=== PATIENT | female | born 1960 | race Two or more races ===

== ENCOUNTER 2018-12-15 14:00 | Outpatient (CLI) | payer OTHER ==
[~2018-12-15 14:00] MED LIST: ARMOUR THYROID30 M1; ESTAZOLAM1 MG; SYNTHROID50 MCG PO; WELLBUTRIN XL300 MG
== END 2018-12-15 14:28 | disposition home or self-care (01) ==
LOC: MAMO-SONO 14:00
DX: N60.01 Solitary cyst of right breast (principal); E04.1 Nontoxic single thyroid nodule; N83.291 Other ovarian cyst, right side; Z12.31 Encounter for screening mammogram for malignant neoplasm of breast

== ENCOUNTER 2018-12-29 13:54 | Outpatient (CLI) | payer OTHER | END 2018-12-29 14:02 | disposition home or self-care (01) | LOC: RAD 13:54 | DX: Z01.811 Encounter for preprocedural respiratory examination (principal) ==

== ENCOUNTER 2019-01-25 08:55 | Day surgery (SDC) | payer OTHER ==
[~2019-01-25 08:55] MED LIST changes: +ESCITALOPRAM OX10 MG
== END 2019-01-25 17:40 | disposition home or self-care (01) ==
LOC: CIR.AMB 08:55
DX: N84.0 Polyp of corpus uteri (principal)

== ENCOUNTER 2019-10-15 08:16 | Emergency (ER) | payer OTHER ==
[~2019-10-15] VITALS: Ht 157.5 cm; Wt 77.1 kg
[2019-10-15] MEDS ORDERED: SYNTHROID75 MCG (08:44)
[2019-10-15] MEDS ORDERED: BACTRIM DS TAB1 EACH PO (09:10)
== END 2019-10-15 09:13 | disposition home or self-care (01) ==
LOC: ER 08:16
DX: N61.0 Mastitis without abscess (principal)

== ENCOUNTER 2019-10-25 11:55 | Outpatient (CLI) | payer OTHER ==
[~2019-10-25 11:55] MED LIST changes: +BACTRIM DS TAB1 EACH PO; +SYNTHROID75 MCG
== END 2019-10-25 12:02 | disposition home or self-care (01) ==
LOC: MAMO-SONO 11:55
DX: Z12.31 Encounter for screening mammogram for malignant neoplasm of breast (principal); Z87.898 Personal history of other specified conditions; N60.11 Diffuse cystic mastopathy of right breast; N60.12 Diffuse cystic mastopathy of left breast; N61.0 Mastitis without abscess

== ENCOUNTER → 2020-02-04 | Emergency (ER) | payer OTHER ==
[~2020-02-04] VITALS: Ht 157.5 cm; Wt 77.1 kg
== END | disposition home or self-care (01) ==
LOC: ER 19:37
DX: J06.9 Acute upper respiratory infection, unspecified (principal)

== ENCOUNTER 2021-03-14 08:35 | Emergency (ER) | payer OTHER ==
[~2021-03-14] VITALS: Ht 157.5 cm; Wt 82.8 kg
[2021-03-14] MEDS ORDERED: DICLOFENAC POTA50 MG PO (09:36)
== END 2021-03-14 10:06 | disposition home or self-care (01) ==
LOC: ER 08:35
DX: M71.522 Other bursitis, not elsewhere classified, left elbow (principal)

== ENCOUNTER → 2022-01-26 | Emergency (ER) | payer OTHER ==
[~2022-01-26] VITALS: Ht 157.5 cm; Wt 83.9 kg
[~2022-01-26] MED LIST changes: +ACETAMINOPHEN 650 MG; +DICLOFENAC POTA50 MG PO
== END | disposition left against medical advice (07) ==
LOC: ER 19:55

== ENCOUNTER → 2022-09-04 | Emergency (ER) | payer OTHER ==
[~2022-09-04] VITALS: Ht 152.4 cm; Wt 85.7 kg
== END | disposition home or self-care (01) ==
LOC: ER 12:50
DX: H10.13 Acute atopic conjunctivitis, bilateral (principal)

== ENCOUNTER → 2025-07-26 | Emergency (ER) | payer OTHER ==
[~2025-07-26] VITALS: Ht 152.4 cm; Wt 77.1 kg
[2025-07-26 10:35] VITALS: BP 124/78; O2SAT 98
[2025-07-26 13:12] LABS: BASO % 0.7 % (0.1-1.2); EOS # 0.22 (0.04-0.54); EOS % 2.4 % (0.7-7.0); LYMPH # 3.31 (1.18-3.74); LYMPH % 36.6 % (19.3-53.1); MEAN PLATELET VOLUME 9.80 fl (9.4-12.4); MONO # 0.58 (0.24-0.82); MONO % 6.4 % (4.7-12.5); NEUT # 4.85 (1.56-6.13); NEUT % 53.7 % (34.0-71.1); RED CELL DISTRIBUTION WIDTH 12.5 % (11.6-14.4)
[2025-07-26 13:56] LABS: BUN CREA RATIO 17.0 (7.0-25.0); CREATININE SERUM 0.89 mg/dL (0.55-1.02); GFR 63.46; GLUCOSE FASTING 102.0 mg/dL (65-100); OSMOLALITY SERUM 290.0 MOSM/KG (275-295); TSH 0.761 uIU/mL (0.358-3.74)
== END | disposition left against medical advice (07) ==
LOC: ER 10:20
PROVIDERS: General Practice
DX: R53.1 Weakness (principal); R20.0 Anesthesia of skin; R51.9 Headache, unspecified; E03.8 Other specified hypothyroidism